=== PATIENT | female | born 1970 | race Caucasian/White ===

== ENCOUNTER → 2016-12-26 | Outpatient (CLI) | payer BC ==
--- NOTE | 2016-12-26 10:23 | REPMRS ---
Patient History The patient states she had a clinical breast exam in 12/2016. Patient had first child at age 31. Family history of prostate cancer in father at age 67, breast cancer in maternal cousin at age 49, and breast cancer in maternal cousin under age 50. Took hormonal contraceptives for 2 years. Digital Woman Screen Mammo: December 26, 2016 - Exam #: [id number] Bilateral CC and MLO view(s) were taken. Technologist: Lesvia Brooks, Technologist Prior study comparison: September 09, 2010, digital bilateral screening mammo performed at [facility]. FINDINGS: There are scattered fibroglandular densities. There has been no change in the appearance of the mammogram from the prior studies. There is a mild amount of residual fibroglandular tissue which is fairly symmetric. There is no interval development of dominant mass, architectural distortion, or clustered microcalcification suggestive of malignancy. ASSESSMENT: BI-RADS/ACR category 1 mammogram. Negative. Recommendation Routine screening mammogram in 1 year (for women over age 40). This mammogram was interpreted with the aid of an FDA-approved computer-aided dectection system. Electronically Signed By: Tate Schulz MD 12/26/16 [id number]
== END ==
LOC: M WHC 08:59
PROVIDERS: ATTEND Nurse Practitioner Women's Health
DX: Z12.31 Encounter for screening mammogram for malignant neoplasm of breast (principal)

== ENCOUNTER → 2016-12-26 | Outpatient (REF) | payer OTHER | LOC: M SFHCWAGY 09:10 | PROVIDERS: ATTEND Nurse Practitioner Women's Health | DX: Z01.419 Encounter for gynecological examination (general) (routine) without abnormal findings (principal); Z11.51 Encounter for screening for human papillomavirus (HPV) ==

== ENCOUNTER → 2018-12-27 | Outpatient (REF) | payer OTHER ==
[2018-12-27 22:24] LABS: APPEARANCE, URINE HAZY (CLEAR); BACTERIA, URINE AUTO NEGATIVE (NEGATIVE); BILIRUBIN, URINE AUTO NEGATIVE (NEGATIVE); BLOOD, URINE BLOOD 3+ (NEGATIVE); COLOR, URINE YELLOW (YELLOW); GLUCOSE, URINE (UA) AUTO NEGATIVE (NEGATIVE); KETONE, URINE AUTO NEGATIVE (NEGATIVE); LEUKOCYTE ESTERASE, URINE AUTO NEGATIVE (NEGATIVE); MUCUS, URINE SMALL (NEGATIVE); NITRITE, URINE AUTO NEGATIVE (NEGATIVE); PROTEIN, URINE AUTO 1+ mg/dL (NEGATIVE); RBC, URINE AUTO TNTC /HPF (0-3); SPECIFIC GRAVITY URINE AUTO 1.024 (1.002-1.035); SQUAMOUS EPITHELIAL CELL UR AU 2 /HPF (0-6); UROBILINOGEN, URINE AUTO 0.2 mg/dL (0.0-2.0); WBC, URINE AUTO 2 /HPF (0-3)
== END ==
LOC: M LAB REF 10:12
PROVIDERS: ATTEND Physician Assistant Medical
DX: N39.0 Urinary tract infection, site not specified (principal)

== ENCOUNTER → 2019-06-11 | Outpatient (REF) ==
[2019-06-11 10:06] LABS: RUBELLA IgG QUALITATIVE IMMUNE (IMMUNE)
== END ==
LOC: M LAB 07:41
PROVIDERS: ATTEND Nurse Practitioner Adult Health
DX: Z02.1 Encounter for pre-employment examination (principal)

== ENCOUNTER → 2019-09-30 | Outpatient (REF) | payer OTHER ==
[2019-09-30 14:03] LABS: PERCENT SATURATION 20.4 % (13.2-45.0)
== END ==
LOC: M LAB REF 12:33
PROVIDERS: ATTEND Nurse Practitioner Adult Health
DX: D64.9 Anemia, unspecified (principal)

== ENCOUNTER → 2020-02-14 | Outpatient (CLI) | payer SELFPAY | LOC: M LABSMTC 10:20 | PROVIDERS: ATTEND Pediatrics | DX: Z20.828 Contact with and (suspected) exposure to other viral communicable diseases (principal) ==

== ENCOUNTER → 2021-10-13 | Outpatient (REF) | payer OTHER ==
[2021-10-14 14:13] LABS: HEPATITIS B SURFACE ANTIBODY NEGATIVE (POSITIVE); HEPATITIS B SURFACE ANTIGEN NEGATIVE (NEGATIVE); HEPATITIS C VIRUS ABY INDEX 0.1 INDEX (<0.8)
== END ==
LOC: M LAB REF 12:05
PROVIDERS: ATTEND Nurse Practitioner Adult Health
DX: R74.01 Elevation of levels of liver transaminase levels (principal)

== ENCOUNTER → 2022-02-01 | Outpatient (REF) ==
[2022-02-01 13:16] LABS: RSV AMPLIFICATION NEGATIVE (NEGATIVE)
== END ==
LOC: M LABSMTC 11:01
PROVIDERS: ATTEND Family Medicine
DX: Z20.822 Contact with and (suspected) exposure to COVID-19 (principal)

== ENCOUNTER → 2022-03-01 | Outpatient (REF) | payer OTHER ==
[2022-03-01 13:35] LABS: HEMATOCRIT 40.7 % (36.0-47.0)
[2022-03-08 17:08] LABS: ANTINUCLEAR ANTIBODIES DIRECT Negative (Negative); CERULOPLASMIN 34.9 mg/dL (19.0-39.0); COPPER PLASMA 145 ug/dL (80-158)
== END ==
LOC: M LAB REF 12:43
PROVIDERS: ATTEND Nurse Practitioner Adult Health
DX: R71.8 Other abnormality of red blood cells (principal)

== ENCOUNTER → 2024-11-20 | Outpatient (CLI) | payer OTHER | LOC: M SOG 14:16 | PROVIDERS: ATTEND Neuromusculoskeletal Medicine, Sports Medicine | DX: M25.561 Pain in right knee (principal) ==

== ENCOUNTER → 2024-12-20 | Outpatient (CLI) | payer BC ==
[~2024-12-20] MED LIST: CELE1CAP4 PO; HYDR-3713 PO; METF500T13 PO; NORV5TAB PO; OLME5TAB27 PO; SUZE50TA PO; THERTAB52 PO
== END ==
LOC: M EKG 09:38
PROVIDERS: ATTEND Anesthesiology
DX: Z01.818 Encounter for other preprocedural examination (principal); R03.0 Elevated blood-pressure reading, without diagnosis of hypertension

== ENCOUNTER 2024-12-23 09:28 | Day surgery (SDC) | payer BC ==
[~2024-12-23] VITALS: Ht 172.7 cm; Wt 124.6 kg
[~2024-12-23 09:28] MED LIST changes: +ACETAMINOPHEN 1000MG/100ML IV BAG As Ordered ONE; +GLYCOPYRROLATE INJ 0.2 MG/ML 2 ML VIAL As Ordered ONE; -HYDR-3713 PO; +KETOROLAC 30 MG/ML 1 ML VIAL As Ordered ONE; +LIDOCAINE 2% 100 MG/5 ML SDV (FOR ANES.) As Ordered ONE; +MIDAZOLAM INJ 2 MG/2 ML VIAL As Ordered ONE; +ONDANSETRON 4MG 2ML VIAL As Ordered ONE; -SUZE50TA PO; +dexAMETHasone 4 MG/ML 1 ML VIAL As Ordered ONE
[2024-12-23] MEDS ORDERED: LR 1,000 ML IV SCH (09:40)
[2024-12-23] MEDS ORDERED: ceFAZolin SOD 2 GM IV ONCE IV ONE (11:30)
[2024-12-23] MEDS: ceFAZolin SOD 3 GM in DEXTROSE 5% (D5W) MINI-BAG PLU 1... IV ONE (11:54)
[2024-12-23] MEDS ORDERED: HYDROmorphone HCL 2 MG/ML 1 ML VIAL As Ordered ONE (12:26)
[2024-12-23] MEDS: LIDOCAINE W/EPINEPHrine 1% 20 ML VIAL As Ordered ONE (12:35)
[2024-12-23] MEDS: MORPHINE 10 MG/ML 1 ML VIAL As Ordered ONE (12:51)
[2024-12-23] MEDS ORDERED: MORPHINE 4 MG/ML 1 ML VIAL IV PRN (13:00)
[2024-12-23] MEDS ORDERED: ONDANSETRON 4MG 2ML VIAL IV PRN (13:00)
[2024-12-23] MEDS ORDERED: HYDR-3713 PO (13:29)
[2024-12-23] MEDS ORDERED: SUZE50TA PO (13:29)
[2024-12-23 14:25] VITALS: BP 115/60; TEMP 97.5; O2SAT 98
== END 2024-12-23 14:46 | disposition home or self-care (01) ==
LOC: M SDC 09:28
PROVIDERS: ATTEND Neuromusculoskeletal Medicine, Sports Medicine
DX: S83.241A Other tear of medial meniscus, current injury, right knee, initial encounter (principal); M65.961 Unspecified synovitis and tenosynovitis, right lower leg; M17.11 Unilateral primary osteoarthritis, right knee; M23.41 Loose body in knee, right knee; I10 Essential (primary) hypertension; R73.03 Prediabetes; Z79.899 Other long term (current) drug therapy; Z79.84 Long term (current) use of oral hypoglycemic drugs; X58.XXXA Exposure to other specified factors, initial encounter; Y93.9 Activity, unspecified; Y92.9 Unspecified place or not applicable; Z88.8 Allergy status to other drugs, medicaments and biological substances
CPT/HCPCS: 29881; J0131; J0665; J0688; J1100; J1171; J1596; J1885; J2250; J2405; J3010